=== PATIENT | female | born 1960 | race Caucasian/White ===

== ENCOUNTER 2017-09-14 04:21 | Inpatient (IN) | payer BC ==
--- NOTE | 2017-09-01 14:48 | HP ---
HISTORY AND PHYSICAL: DATE OF ADMISSION/SURGERY: 09/14/17 DATE OF OFFICE VISIT: 09/01/17 SURGEON: Dennise Marie MD * (DICTATED BY SHANICE HERNANDES) PROCEDURE: Left total hip arthroplasty. CHIEF COMPLAINT: Left hip pain. HISTORY OF PRESENT ILLNESS: Ms. Kilgore is a 57-year-old female with complaints of left hip pain secondary to end-stage osteoarthritis. She has failed conservative treatment and elected to proceed with surgery, which is scheduled for 09/14/[address] Marie. PAST MEDICAL HISTORY: Depression. PAST SURGICAL HISTORY: x3. CURRENT MEDICATION: Citalopram hydrobromide 20 mg daily. ALLERGIES: LOVASTATIN. FAMILY HISTORY: Heart disease and diabetes. SOCIAL HISTORY: She is a 57-year-old female. She lives with her . She does not smoke or use drugs. Uses alcohol rarely. REVIEW OF SYSTEMS: A complete 14-point review of systems was reviewed with the patient, was all negative and noncontributory. PHYSICAL EXAMINATION GENERAL: Well developed and well nourished, in no acute distress. VITAL SIGNS: She stands 64 inches tall, weighs 170 pounds. Blood pressure is 118/78, heart rate is 68. HEENT: Normocephalic, atraumatic. NECK: Supple. No palpable lymph nodes. PULMONARY: The lungs are clear to auscultation bilaterally. CARDIO: Regular rate and rhythm. Strong S1, S2. ABDOMEN: Soft, nontender, nondistended. NEUROLOGICAL: She is alert and oriented x3. MUSCULOSKELETAL: Left lower extremity: The skin is intact. There are no open wounds or abrasions. She walks with an antalgic-type gait favoring her left hip. She has decreased internal and external rotation of the left hip. 2+ dorsalis pedis pulses, intact sensation in her lower extremity. Muscle group strengths are intact at 5/5. ASSESSMENT AND PLAN: Ms. Kilgore is a 57-year-old female with end-stage osteoarthritis of the left hip. She has failed conservative treatment and elected to proceed with a left total hip arthroplasty, which is scheduled for with Dr. Marie. Dr. Marie discussed the risks and benefits of the surgery at today's visit and all of her questions were answered. She will follow up with Dr. Marie 2 weeks after the surgery. SHANICE HERNANDES [id number]/[facility] #: [id number] ELLIS HOSPITALSimón
[~2017-09-14 04:21] MED LIST: Buffered Lidocaine 0.9% SYRIN* 5 ML/SYR SYRINGE INTRADERM ONE
[2017-09-14] MEDS ORDERED: Famotidine IV* 10 MG/ML 2 ML (20 mg) IV ONE (06:00)
[2017-09-14] MEDS ORDERED: Gabapentin CAP(*) 300 MG PO ONE (06:00)
[2017-09-14] MEDS ORDERED: Gabapentin CAP(*) 300 MG ONE (07:01)
[2017-09-14] MEDS ORDERED: Famotidine IV* 10 MG/ML 2 ML (20 mg) ONE (07:01)
[2017-09-14] MEDS ORDERED: ceFAZolin 2 GM PREMIX (*) 2 GM/50 ML BAG IVPB ONE (07:01)
[2017-09-14] MEDS ORDERED: Bupivacaine 0.5% PF 10 ML VIAL INJ ONE ×3 (07:40→11:18)
[2017-09-14] MEDS ORDERED: Midazolam* 1 MG/ML 5 ML VIAL (5 MG) ONE (08:53)
[2017-09-14] MEDS ORDERED: fentaNYL* 50 MCG/ML 2 ML VIAL (100 MCG VIAL) ONE (08:53)
[2017-09-14] MEDS ORDERED: Lidocaine 2% PF * 5 ML VIAL ONE (08:54)
[2017-09-14] MEDS ORDERED: Bupivacaine-MPF SPINAL* 7.5 MG/ML - 2ML AMP ONE (08:54)
[2017-09-14] MEDS ORDERED: Ondansetron INJ* 2 MG/ML VIAL ONE (08:54)
[2017-09-14] MEDS ORDERED: Dexamethasone IV* 4 MG/ML 1 ML (4 MG) ONE (08:54)
[2017-09-14] MEDS ORDERED: Ketorolac INJ* 30 MG/ML 1 ML VIAL ONE (08:54)
[2017-09-14] MEDS ORDERED: Propofol* 10 MG/ML 20 ML BTL IV PUSH ONE ×2 (08:54→10:49)
[2017-09-14] MEDS ORDERED: KETAMINE HCL* 50 MG/ML 10 ML VIAL ONE (09:38)
[2017-09-14] MEDS ORDERED: Phenylephrine IV* 40 MCG/ML 10 ML SYRINGE ONE (10:25)
[2017-09-14] MEDS ORDERED: HYDROmorphone INJ* 0.5 MG/0.5 ML SYRINGE IV PRN (10:41)
[2017-09-14] MEDS ORDERED: DiMENhydriNATE IV* 50 MG/ML VIAL IV PUSH PRN (10:41)
[2017-09-14] MEDS ORDERED: oxyCODONE/Acetamin 5/325 MG* TAB PO PRN (10:41)
[2017-09-14] MEDS ORDERED: Naloxone* 0.4 MG/ML 1 ML VIAL IV PRN (10:41)
[2017-09-14] MEDS ORDERED: Gabapentin CAP(*) 100 MG PO ONE (10:42)
[2017-09-14] MEDS ORDERED: HYDROmorphone INJ* 0.5 MG/0.5 ML SYRINGE ONE (10:55)
[2017-09-14] MEDS ORDERED: Gabapentin CAP(*) 100 MG ONE (11:35)
[2017-09-14] MEDS ORDERED: Polyethylene Glycol 3350* 17 GM PACKET PO PRN (11:41)
[2017-09-14] MEDS ORDERED: diPHENhydraMINE IV* 50 MG/ML 1 ml VIAL (BENADRYL) IV PRN (11:41)
[2017-09-14] MEDS ORDERED: Magnesium Hydroxide LIQ* 30 ML UDC PO PRN (11:41)
[2017-09-14] MEDS ORDERED: Ondansetron TAB* 4 MG PO PRN (11:41)
[2017-09-14] MEDS ORDERED: Bisacodyl SUPP* 10 MG SUPP PR PRN (11:41)
[2017-09-14] MEDS ORDERED: Cyclobenzaprine TAB* 10 MG PO PRN (11:41)
[2017-09-14] MEDS ORDERED: Morphine VIAL* 4 MG/ML VIAL (1 ml vial) IV PRN (11:41)
[2017-09-14] MEDS ORDERED: Acetaminophen TAB* 325 MG PO PRN (11:41)
--- NOTE | 2017-09-14 11:56 | RAD ---
INDICATION: Total left hip replacement surgery. COMPARISON: Comparison is made with a prior x-ray study of the pelvis from September 01, 2017. TECHNIQUE: A single AP view of the left hip was obtained in the operating room during a total hip replacement surgery. FINDINGS: The acetabular prosthesis is in place and there is a femoral prostheses template in place. IMPRESSION: INTRAOPERATIVE CONTROL FILMS.
--- NOTE | 2017-09-14 12:27 | RAD ---
INDICATION: Status post total left hip replacement surgery. COMPARISON: Comparison is made with a prior x-ray study of the hip from March 10, 2017. TECHNIQUE: An AP view of the pelvis and AP and lateral films of the left hip were obtained. FINDINGS: The patient is status post total left hip replacement surgery. The bones and prostheses are in normal alignment. There is a small amount of air within the adjacent soft tissues consistent with the patient's recent surgery. IMPRESSION: STATUS POST TOTAL LEFT HIP REPLACEMENT SURGERY.
[2017-09-14] MEDS ORDERED: oxyCODONE/Acetamin 5/325 MG* TAB ONE (14:29)
[2017-09-14] MEDS: oxyCODONE/Acetamin 5/325 MG* TAB PO PRN ×2 (14:30→19:48)
[2017-09-14] MEDS ORDERED: LR @ 20 MLS/HR IV PRN (16:46)
[2017-09-14] MEDS ORDERED: LR @ 20 MLS/HR IV ONE (17:00)
[2017-09-14] MEDS ORDERED: Warfarin TAB(*) 6 MG PO ONE (17:00)
[2017-09-14] MEDS: ceFAZolin 1 GM in Dextrose (*) 1 GM/50 ML BAG IVPB SCH (17:25)
[2017-09-14] MEDS: oxyCODONE TAB* 5 MG TAB PO PRN ×2 (17:25→21:33)
[2017-09-14] MEDS: Docusate CAP* 100 MG PO SCH (19:45)
[2017-09-14] MEDS: Magnesium Hydroxide LIQ* 30 ML UDC PO SCH (19:45)
[2017-09-14] MEDS: Ondansetron INJ* 2 MG/ML VIAL IV PRN (21:34)
[2017-09-15] MEDS: oxyCODONE/Acetamin 5/325 MG* TAB PO PRN ×3 (00:43→08:35)
--- NOTE | 2017-09-15 00:57 | OP ---
DATE OF SURGERY: 09/14/17 - ROOM #346 DATE OF : 58. ATTENDING SURGEON: Dennise Marie MD. SEED SALES MANAGER: SHANICE Hendrix. Mr. Rueda did help throughout the procedure with preparation of the leg, wound retraction, manipulation of the hip and wound closure. ANESTHESIOLOGIST: Dr. Worthington. ANESTHESIA: Spinal. PRE-OP DIAGNOSIS: Severe end-stage degenerative osteoarthritis of the left hip joint. POST-OP DIAGNOSIS: Severe end-stage degenerative osteoarthritis of the left hip joint. OPERATIVE PROCEDURE: Left total hip arthroplasty. ESTIMATED BLOOD LOSS: 300 cc. COMPLICATIONS: None. SPECIMENS: Femoral head and acetabular reaming sent to pathology. HARDWARE USED: This is Yuly uncemented total hip arthroplasty hardware. For the cup, a Tritanium cluster hole shell 52D, for the bone screw a 20-mm torque 6.5 cancellous bone screw. For the insert, a Trident X3 0-degree polyethylene insert 32D. For the stem, an Accolade TMZF size 3 with a 132- degree neck and for the head, a Biolox delta ceramic V40, femoral head 32+0. BRIEF HISTORY/INDICATIONS: Ms. Kilgore is a 57-year-old female with years of increasingly severe left hip pain. She failed conservative treatment with anti - inflammatories, physical therapy, and pain medication. Due to continued pain and decreased quality of life, she elected to undergo a left total hip arthroplasty. Informed consent was obtained from the patient. She understood the risks of surgery included, but were not limited to bleeding, infection, damage to nearby structures, continued pain, need for further surgery, intraoperative fracture, nerve palsy, hardware failure or loosening, leg length discrepancy, dislocation, stroke, heart attack, blood clot, and . She wished to proceed. INTRAOPERATIVE FINDINGS: Intraoperatively, the patient was noted to have severe arthritis with complete loss of cartilage along the femoral head and acetabulum. She had significant osteophyte formation around the femoral neck and the acetabular rim. DESCRIPTION OF PROCEDURE: Ms. Kilgore was identified in the preanesthesia unit. Her left lower extremity was marked as the correct operative side. Informed consent was signed and placed in the chart. The patient was taken to the operating room and placed under spinal anesthesia. A Wagner catheter was placed. She was placed in the right lateral decubitus position on the pegboard. All bony prominences were well padded. Left lower extremity was prepped and draped in the usual sterile fashion. Preop time-out was made to correctly identify the patient's side and site. Appropriate perioperative antibiotics were given within 1 hour of incision. A 12-cm posterior hip incision was made with a 10 blade and carried down to the lateral fascial layer. Lateral fascial layer was incised in line with a skin incision. Charnley retractor was placed. The piriformis and conjoint tendons were identified on the posterolateral femur. These were elevated with electrocautery and tagged with #5 Ethibond. Next, the electrocautery was used to make a standard posterior and lateral capsular flap, and this was also tagged with #5 Ethibond. The hip was carefully dislocated. Lesser troch to the center of the femoral head measured 58 mm. Oscillating saw was used to make the appropriate femoral neck cut. The femoral head was carefully removed. The femur was retracted anteriorly. After appropriate placement of retractors, the acetabulum was well visualized. A long-handled knife was used to sharply remove any remaining labrum from the acetabular rim. The acetabulum was sequentially reamed up to a size 51. A 51 trial had good fit. Final implant chosen was a 52 Tritanium cluster hole shell 52D. A subchondral bleeding bone bed was obtained through the reamer. The final implant was impacted into the acetabulum without difficulty. There was excellent stability with appropriate anteversion and abduction angle. A single 20 mm screw was placed in the superior and posterior quadrant for extra stability. Insert chosen was a Trident X3 0-degree polyethylene insert 32D. This was impacted into the acetabulum without difficulty. Stability of the insert was checked and rechecked and noted to be stable. Next, attention was turned to preparation of the femur. A canal finder was used to enter the proximal femoral canal. Femoral canal was sequentially broached up to a size 3. Size 3 broach had good stability and appropriate anteversion. A 132 neck trial was chosen. A 32+0 head trial was chosen. Lesser troch to the center of the femoral head measured 59 mm. The hip was reduced and taken through a range of motion. The hip was stable in all positions. Soft tissue tension and leg length were deemed to be appropriate. The hip was dislocated. All trials were removed. Final implant chosen was an Accolade TMZF size 3 with a 132-degree neck. This was impacted into the femoral canal without difficulty. The stem was stable with appropriate anteversion. The final head chosen was a Biolox delta ceramic V40 femoral head 32+0. This was impacted onto the femoral neck. Lesser troch to the center of the femoral head, final measurement was 58 mm. The hip was reduced and taken through a range of motion. The hip was stable in all positions. There was good soft tissue tension and appropriate leg lengths. The hip was copiously irrigated with sterile saline. Previously tagged capsule and tendons were reapproximated to the posterolateral femur through 2 trochanteric drill holes. The lateral fascial layer was closed using interrupted #1 Vicryls. The rest of the incision was closed in a layered fashion using 0 and 2-0 Vicryls. Skin was closed using running 3-0 Monocryl with Dermabond. Sterile Adaptic, 4x4s, and paper tape were used to cover the incision. The patient's anesthesia was reversed without difficulty. She was taken to the PACU in stable condition. Intended weightbearing will be weightbearing as tolerated. Intended DVT prophylaxis will be Coumadin with a Lovenox bridge. [id number]/[facility] #: [id number] ISABELL
[2017-09-15] MEDS: ceFAZolin 1 GM in Dextrose (*) 1 GM/50 ML BAG IVPB SCH ×2 (01:10→08:34)
[2017-09-15 05:50] LABS: Hematocrit 32 % (35-47); Hemoglobin 11.2 g/dl (12.0-16.0); Mean Platelet Volume 7.9 um3 (7.4-10.4); Platelet Count 164 10^3/ul (150-450)
[2017-09-15 06:00] LABS: INR 1.16 (0.77-1.02)
[2017-09-15 06:03] LABS: EGFR Non-African American 104.7 (>60)
[2017-09-15] MEDS: oxyCODONE TAB* 5 MG TAB PO PRN ×4 (06:11→23:19)
[2017-09-15] MEDS: Magnesium Hydroxide LIQ* 30 ML UDC PO SCH ×2 (08:51→19:15)
[2017-09-15] MEDS: Docusate CAP* 100 MG PO SCH ×2 (08:51→19:15)
[2017-09-15] MEDS ORDERED: traMADol TAB* 50 MG PO PRN ×2 (09:20)
[2017-09-15] MEDS: Ondansetron INJ* 2 MG/ML VIAL IV PRN (09:22)
--- NOTE | 2017-09-15 09:28 | PN ---
Progress Note - Progress Note Date of Service: 09/15/17 SOAP: Subjective: Pt is doing well. Pain is controlled but she has nausea. She vomited during PT. Doing well otherwise. Denies CP/SOB, F/C or calf pain Objective: PE- 57 y/o WDWN F NAD, A&O x 3 LLE- inc c/d/i, full f/e knee, +DF/PF ankle, calf soft NT, +2 Dp pulse SILT distally Vital Signs Temp Pulse Resp BP Pulse Ox 97.8 F 84 18 99/63 97 09/15/17 07:29 09/15/17 07:29 09/15/17 08:35 09/15/17 07:29 09/15/17 08:00 Laboratory Results - last 24 hr 09/15/17 09/15/17 09/15/17 05:21 05:21 05:21 Hgb 11.2 L Hct 32 L Plt Count 164 MPV 7.9 INR (Anticoag Therapy) 1.16 H Sodium 135 Potassium 4.2 Chloride 105 Carbon Dioxide 28 Anion Gap 2 BUN 9 Creatinine 0.59 Est GFR ( Amer) 126.7 Est GFR (Non-Af Amer) 104.7 BUN/Creatinine Ratio 15.3 Glucose 126 H Calcium 8.2 L Assessment: POD 1 Left MJ Plan: Zofran for nausea Try to switch to tramadol and tylenol to reduce nausea, if not enough for pain cont percocet and zofran WBAT- PT/OT Cont lovenox and coumadin- 8 mg coumadin tonight Plan to DC to home tomorrow with VNS
[2017-09-15] MEDS ORDERED: Scopolamine 1.5 mg* PATCH TRANSDERM PRN (12:00)
[2017-09-15] MEDS ORDERED: Scopolamine 1.5 mg* PATCH ONE (12:05)
[2017-09-15] MEDS: Enoxaparin(*) 40 MG/0.4 ML SYR SUBCUT SCH (12:08)
[2017-09-15] MEDS: Citalopram TAB* 20 MG PO SCH (14:57)
[2017-09-15] MEDS ORDERED: Warfarin TAB(*) 4 MG PO ONE (17:00)
[2017-09-16] MEDS: oxyCODONE TAB* 5 MG TAB PO PRN ×4 (05:23→21:19)
[2017-09-16 05:49] LABS: Hematocrit 29 % (35-47); Hemoglobin 10.1 g/dl (12.0-16.0); Mean Platelet Volume 8.2 um3 (7.4-10.4); Platelet Count 143 10^3/ul (150-450)
[2017-09-16 05:53] LABS: INR 1.86 (0.77-1.02)
[2017-09-16] MEDS: Docusate CAP* 100 MG PO SCH ×2 (08:30→20:46)
[2017-09-16] MEDS: oxyCODONE/Acetamin 5/325 MG* TAB PO PRN (08:30)
[2017-09-16] MEDS: Citalopram TAB* 20 MG PO SCH (08:30)
[2017-09-16] MEDS: Magnesium Hydroxide LIQ* 30 ML UDC PO SCH ×2 (08:31→20:46)
--- NOTE | 2017-09-16 09:59 | PN ---
Progress Note - Progress Note Date of Service: 09/16/17 SOAP: Subjective: Pt is doing well. Continues to have pain, states nausea is better. Complains of dizziness today. Feeling a bit "groggy" Doing well otherwise. Denies CP/SOB, F/ C or calf pain Objective: PE- 57 y/o WDWN F NAD, A&O x 3 LLE- dressing changed, inc c/d/i, no drainage, +DF/PF ankle, calf soft NT, +2 Dp pulse, SILT distal Vital Signs Temp 98.8 F 09/16/17 07:54 Pulse 83 09/16/17 07:54 Resp 18 09/16/17 08:30 BP 96/54 09/16/17 07:54 Pulse Ox 95 09/16/17 07:54 Intake & Output 09/15/17 09/16/17 09/16/17 18:59 06:59 18:59 Intake Total 1782 400 340 Output Total 1225 950 250 Balance 557 -550 90 Intake: IV Fluids 889 LR 889 IVPB 53 cefazolin 53 Oral 840 400 340 Output: Urine 1225 950 250 Other: Estimated Void Large # Voids 1 Assessment: POD 2 Left MJ Plan: Zofran for nausea, scopolomine patch also Tramadol for baseline pain control. Oxy 10mg for breakthrough pain WBAT- PT/OT 2mg coumadin INR 2.10 Plan to DC to home tomorrow with VNS
[2017-09-16] MEDS ORDERED: traMADol TAB* 50 MG PO PRN ×2 (10:00)
[2017-09-16] MEDS: Enoxaparin(*) 40 MG/0.4 ML SYR SUBCUT SCH (11:46)
[2017-09-16] MEDS ORDERED: Warfarin TAB(*) 6 MG PO NR (17:00)
[2017-09-16] MEDS ORDERED: Warfarin TAB(*) 2 MG PO NR (17:00)
[2017-09-17] MEDS: oxyCODONE TAB* 5 MG TAB PO PRN ×2 (03:08→08:09)
[2017-09-17 05:50] LABS: Hematocrit 29 % (35-47); Hemoglobin 10.1 g/dl (12.0-16.0); Mean Platelet Volume 8.3 um3 (7.4-10.4); Platelet Count 146 10^3/ul (150-450)
[2017-09-17 05:55] LABS: INR 2.42 (0.77-1.02)
[2017-09-17] MEDS: Magnesium Hydroxide LIQ* 30 ML UDC PO SCH (08:09)
[2017-09-17] MEDS: Citalopram TAB* 20 MG PO SCH (08:10)
[2017-09-17] MEDS: Docusate CAP* 100 MG PO SCH (08:10)
[2017-09-17 08:12] VITALS: BP 108/57
--- NOTE | 2017-09-17 09:09 | PN ---
Progress Note - Progress Note Date of Service: 09/17/17 SOAP: Subjective: Pt is doing well. States that pain is vastly improved, states nausea and dizziness is gone. Denies CP/SOB, F/C or calf pain. Is ready to go go home today. Objective: PE- 57 y/o WDWN F NAD, A&O x 3 LLE- dressing c/d/i, no drainage, +DF/PF ankle, calf soft NT, +2 Dp pulse, SILT distal Vital Signs Temp 98.4 F 09/17/17 07:30 Pulse 68 09/17/17 07:30 Resp 18 09/17/17 08:09 BP 108/57 09/17/17 07:30 Pulse Ox 95 09/17/17 08:00 Intake & Output 09/16/17 09/17/17 09/17/17 18:59 06:59 18:59 Intake Total 340 600 240 Output Total 0 800 1000 Balance -0170 -200 -760 Intake: Oral 340 600 240 Output: Urine 2049 800 1000 Assessment: POD 3 Left MJ Plan: D/C home today Zofran for nausea Pt will be sent home on oxycodone 5 mg to take every 4 - 6 hours prn WBAT- PT/OT Hold warfarin tonight, recheck tomorrow
--- NOTE | 2017-09-17 11:47 | DS ---
DISCHARGE SUMMARY: DATE OF ADMISSION: 09/14/17 DATE OF DISCHARGE: 09/17/17 PROVIDER: Dennise Marie MD.* (DICTATED BY SHANICE RAVI) ADMITTING DIAGNOSIS: Left total hip arthroplasty. CONSULTATIONS: Physical therapy and occupational therapy. HISTORY OF PRESENT ILLNESS: Summer is a 57-year-old female with complaints of left hip pain secondary to end-stage osteoarthritis. She has failed conservative treatment and elected to proceed with a left total hip arthroplasty that was performed on 09/14/[address] Dennise Marie. HOSPITAL COURSE: The patient was admitted to [facility] on 09/14/17 and underwent a left total hip arthroplasty with no complications. The patient recovered briefly in the postanesthesia care unit and was then transferred to short stay surgical unit in stable condition. On postop day #1 the H and H was 11.2 and 32 and the INR was 1.6 after 6 mg of Coumadin the night before. The patient experienced some nausea and vomiting on postop day 1 and Zofran was given to the patient and then an attempt to switch to tramadol to reduce nausea was performed. We also gave the patient a scopolamine patch in order to help with the nausea. Dressing was clean, dry, and intact and the left lower extremity was neurovascularly intact. She demonstrated dorsiflexion and plantar flexion with good strength. The patient was able to get out of bed for physical therapy. Pain was controlled with Percocet 5/325. On postop day #2 the urinary catheter was discontinued and the patient was able to void without difficulty. Incision was found to be benign with minimal drainage, no erythema or warmth. The patient's H and H was 10.1 and 29 with an INR of 1.86 after 8 mg of Coumadin the night before. The patient had some dizziness, but felt that her nausea and vomiting was well improved. She continued to use oxycodone for pain relief, although tramadol was prescribed, she would rather use oxycodone. On postop day #3, the patient's H and H was 10.1 and 29 with an INR of 2.42 after 6 mg of Coumadin the night before. The patient states that the dizziness subsided after a a bolus that was given of lactated Ringer's. The patient's nausea and vomiting has subsided also. Pain has been well controlled with oxycodone 5 mg. The patient's pain is controlled enough to be stable for discharge. Throughout the hospital course, the vital signs were stable and the patient was afebrile. DISCHARGE CONDITION: Good. DISCHARGE MEDICATIONS: New medications: 1. Oxycodone 5 mg. 2. Zofran 4 mg. 3. Warfarin 2 mg. Home medications: 1. Citalopram hydrobromide 20 mg. DISCHARGE INSTRUCTIONS: 1. Weightbearing as tolerated. 2. Wound care: Okay to shower on postop day #3. No bathing, swimming, or submerging the wound. Use gentle, soap and pat dry. Cover with gauze, Francois wrap or tape. Call orthopedic office for increased drainage, redness, increased pain or fever. Go to the ER with shortness of breath or chest pain. 3. Diet: Regular diet. Increase fluids and fiber to prevent constipation. Continue to use stool softeners. Call office if no bowel motion within 48 hours. 4. Hip precautions. Continue posterior hip precautions and do not cross legs or bend greater than 90 degrees or squat. 5. Continue physical therapy and occupational therapy exercises as shown. 6. Visiting home nurses to do wound checks. 7. Visiting home nurses to draw blood for INR on Monday and . 8. Coumadin dosing, please note that you have been given 2 mg tablets. Please lucita dosing instructions on your calender as they are . Hold Coumadin tonight, recheck tomorrow. 9. Pain control with oxycodone 5 mg 1 to 2 tablets by mouth every 4 to 6 hours as needed for pain, maximum of 10 tabs per day. 10. Antibiotics required prior to any dental work. 11. Follow up with Dr. Dennise Marie in 10 to 14 days. Call for an appointment. SHANICE RAVI [id number]/[facility] #: [id number] ISABELL
[2017-09-18] MEDS ORDERED: Scopolamine PATCH Remove* 1 NOTE MISC PATCH OFF SCH (12:00)
== END 2017-09-17 10:30 | disposition home health service (06) | DRG 301 ==
LOC: AA 06:47 → SSU 13:45
PROVIDERS: ADMIT Orthopaedic Surgery Adult Reconstructive Orthopaedic Surgery; ATTEND Orthopaedic Surgery Adult Reconstructive Orthopaedic Surgery
PROC: 0SRB04A Replacement of Left Hip Joint with Ceramic on Polyethylene Synthetic Substitute, Uncemented, Open Approach (ICD-10-PCS; principal; 2017-09-14 09:00)
DX: M16.12 Unilateral primary osteoarthritis, left hip (principal); F32.9 Major depressive disorder, single episode, unspecified; E78.5 Hyperlipidemia, unspecified; F41.9 Anxiety disorder, unspecified; E66.9 Obesity, unspecified; M25.752 Osteophyte, left hip; R11.2 Nausea with vomiting, unspecified; R42 Dizziness and giddiness; Z88.8 Allergy status to other drugs, medicaments and biological substances; Z83.3 Family history of diabetes mellitus; Z82.49 Family history of ischemic heart disease and other diseases of the circulatory system; Z79.01 Long term (current) use of anticoagulants; Z72.89 Other problems related to lifestyle; Z68.31 Body mass index [BMI] 31.0-31.9, adult; Z82.61 Family history of arthritis
CPT/HCPCS: 36415; 80048; 85014; 85018; 85049; 85610; 88304; 88311; A9270-GY; C1713; C1776; G8987-GO-CJ; G8988-GO-CI; G8989-GO-CI; J0690; J1100; J1170; J1650; J1885; J2250; J2405; J2704; J3010

== ENCOUNTER → 2018-09-18 05:38 | Day surgery (SDC) | payer BC ==
--- NOTE | 2018-09-14 23:49 | HP ---
AMENDED REPORT NOW INCLUDES DESIGNATED COSIGNER HISTORY AND PHYSICAL: DATE OF SURGERY: 09/18/18 DATE OF OFFICE VISIT: 09/14/18 SURGEON: Dr. Dennise Marie.* (DICTATED BY SHANICE MARAVILLA) PROCEDURE: Right knee arthroscopy with partial meniscectomy, possible chondroplasty, synovectomy, and plica excision. CHIEF COMPLAINT: Right knee pain. HISTORY OF PRESENT ILLNESS: Ms. Kilgore is a 58-year-old female who has had significant right knee pain. She has failed conservative treatment with steroid injections and physical therapy with minimal improvement of her pain. She has had an MRI showing a medial meniscal tear and the pain is causing her enough discomfort that she would like to proceed with an arthroscopy for partial meniscectomy. PAST MEDICAL HISTORY: Positive for osteoarthritis and depression. PAST SURGICAL HISTORY: x3, left total hip arthroplasty in 2018. MEDICATIONS: 1. Citalopram hydrobromide 20 mg p.o. daily. 2. Phentermine HCL 30 mg p.o. daily. 3. Amoxicillin 500 mg, take 4 tablets 1 hour prior to dental procedures. ALLERGIES: Lipostatin which results in hives. FAMILY HISTORY: Positive for diabetes, hypertension, coronary artery disease, and rheumatoid arthritis. 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 She lives at home with her partner. She denies any tobacco or recreational drug use. She drinks 10 alcoholic beverages per week. She normally is an independent ambulator. She is right-hand dominant. REVIEW OF SYSTEMS: Negative for general, cephalic, CV, respiratory, GI, , other musculoskeletal, integumentary, endocrine, neurologic, hematologic symptoms. Infectious Disease: Negative for MRSA, hep C, HIV. No known history of DVTs. PHYSICAL EXAMINATION GENERAL: Well-developed, well-nourished 58-year-old female, in no acute distress. VITAL SIGNS: Height 64 inches, weight 183 pounds, pulse 100, BP 108/70, BMI 31.4. HEENT: Normocephalic, atraumatic. PERRLA. Extraocular movement intact. NECK: Supple. No palpable lymph nodes. Throat is clear. PULMONARY: Lungs are clear to auscultation bilaterally. No wheezes, rales, or rhonchi. CARDIO: Regular rate and rhythm. S1 and S2 normal. No murmurs, rubs, or gallops. No edema. ABDOMEN: Positive bowel sounds. Soft, nontender. NEUROLOGIC: A and O x3. Cranial nerves II through XII intact. Sensation is intact to light touch. MUSCULOSKELETAL: Lower extremity: The patient's skin is intact. No abrasions or open wounds. No palpable lymph nodes or masses. Range of motion is 5 to 125 degrees of flexion today at the knee. Positive for a mild effusion of the knee. Some tenderness to palpation along the medial joint line. Tenderness along the IT band and hamstring tendons posterolaterally; this is improved today compared to last visit. She has positive Deni's, and distally neurovascularly intact. DIAGNOSTIC STUDIES: MRI from 08/01/18 shows significant arthritis in the medial and patellofemoral compartments as well as a tear in the medial meniscus posterior horn and body. IMPRESSION: Right knee medial meniscal tear as well as osteoarthritis. PLAN: The patient is scheduled to undergo a right knee arthroscopy with partial meniscectomy, possible chondroplasty, synovectomy, and plica excision with Dr. Marie on 09/18/18. Dr. Marie went over the procedure as well as the risks and benefits with the patient and she elected to proceed. She will return to the office in 10 to 14 days postop for followup and suture removal. Prescription for tramadol will be e-scribed to the patient's pharmacy for postoperative pain management. SHANICE KING [id number]/[facility] #: [id number] ISABELL
[~2018-09-18 05:38] MED LIST changes: +Acetaminophen TAB* 325 MG PO PRN; -Buffered Lidocaine 0.9% SYRIN* 5 ML/SYR SYRINGE INTRADERM ONE; +Buffered Lidocaine 1% SYRIN* 1 ML/SYRINGE INTRADERM ONE; +Bupivacaine 0.5%* 50 ML VIAL ONE; +Dexamethasone IV* 4 MG/ML 1 ML (4 MG) ONE; +DiMENhydriNATE IV* 50 MG/ML VIAL IV PUSH PRN; +EPINEPHRINE 1 MG/ML 1 ML VIAL ONE; +Ketorolac INJ* 30 MG/ML 1 ML VIAL ONE; +Lactated Ringers 1000 ML Bag* 1,000 ML IV SCH; +Lidocaine 2% PF * 5 ML VIAL ONE; +Metoclopramide IV* 5 MG/ML 2 ML VIAL ONE; +Midazolam* 1 MG/ML 2 ML VIAL (2 MG) ONE; +Naloxone* 0.4 MG/ML 1 ML VIAL IV PRN; +Ondansetron INJ* 2 MG/ML VIAL ONE; +Propofol* 10 MG/ML 20 ML BTL ONE; +ROPIVACAINE 5 MG/ML 30 ML BTL (0.5%) ONE; +Succinylcholine* 20 MG/ML 10 ML VIAL ONE; +ceFAZolin 2 GM in NS PREMIX(*) 2 GM/100 ML BAG IVPB ONE; +fentaNYL* 50 MCG/ML 2 ML VIAL (100 MCG VIAL) IV PRN; +fentaNYL* 50 MCG/ML 2 ML VIAL (100 MCG VIAL) ONE; +methylPREDNISolone ACETATE 80* 80 MG/ML 1 ML VIAL ONE; +oxyCODONE TAB* 5 MG TAB PO PRN
[2018-09-18 09:34] VITALS: BP 116/79
--- NOTE | 2018-09-18 21:34 | OP ---
DATE OF OPERATION: 09/18/18 [facility] DATE OF : 58 ATTENDING SURGEON: Dennise Marie MD PATIENT REGISTRAR: SHANICE Purdy. Ms. Smith did help throughout the procedure with preparation of the leg, wound retraction, manipulation of the knee, and wound closure. ANESTHESIOLOGIST: Dr. Rojo. ANESTHESIA: General. PRE-OP DIAGNOSES: Right knee medial meniscal tear, mild to moderate osteoarthritis. POST-OP DIAGNOSES: Right knee medial meniscal tear, anterior synovitis, moderate to severe arthritis. OPERATIVE PROCEDURE: Right knee arthroscopy with partial medial meniscectomy, anterior synovectomy, patellofemoral chondroplasty. BRIEF HISTORY/INDICATION: Ms. Kilgore is a 58-year-old female with two months of acute onset right knee pain and mechanical symptoms. She failed conservative treatment and MRI confirmed a medial meniscal tear. She had some mild arthritic changes on plain films. Due to continued pain and failure of conservative treatment, the patient elected to undergo a right knee arthroscopy. Informed consent was obtained from the patient. She understood the risks of surgery included, but were not limited to, bleeding, infection, damage to nearby structures, continued pain, need for further surgery, re-tear of the meniscus, progression of arthritis, stroke, heart attack, blood clot, and . The patient wished to proceed. INTRAOPERATIVE FINDINGS: Intraoperatively, the patient had grade 3 and 4 Outerbridge cartilage changes in the medial and patellofemoral compartment. She had a linear tear along the posterior horn of the medial meniscus. She had a significant amount of anterior synovitis. She had some cartilage flapping and fissuring along the patellofemoral compartment. ESTIMATED BLOOD LOSS: Less than 25 cc. SPECIMENS: None. COMPLICATIONS: None. DESCRIPTION OF PROCEDURE: Ms. Kilgore was identified in the preanesthesia unit. Her right lower extremity was marked as the correct operative side. Informed consent was signed and placed in the chart. The patient was taken to the operating room and placed under anesthesia. Right lower extremity was prepped and draped in the usual sterile fashion. Preop time-out was made to correctly identify the patient, side and site. Appropriate perioperative antibiotics were given within 1 hour of incision. A 0.5 cm standard anterolateral portal incision was made with a #10 blade and carried down through the capsule. Trocar was introduced. As soon as the light and water sources were turned on, there was immediate visualization of the suprapatellar pouch. A tour of the knee joint was performed. Suprapatellar pouch showed no obvious abnormality. Patellofemoral compartment showed some fissuring and flapping of the cartilage along the medial patellar facet and the trochlear groove of the femur. These were grade 3 and 4 Outerbridge cartilage changes. Medial gutters showed no loose body or plica. Anterior joint line showed significant amount of synovitis. Medial compartment showed grade 3 and 4 Outerbridge cartilage changes along the medial femoral condyle. There was an anteriorly displaced posterior medial meniscal tear. ACL and PCL appeared to be intact. The knee was placed in a [id number] position. There was no obvious lateral meniscal tear. No significant lateral degenerative changes. Lateral gutter showed no loose body or plica. Under direct visualization, a medial portal incision was made with a #15 blade. A probe was introduced and a second tour of the knee joint was performed. No additional findings were noted. Shaver and radiofrequency ablation wand were introduced. These were used to perform an anterior synovectomy. Inflamed tissue was conservatively excised until there was no further impingement with range of motion. A straight biter and shaver were used to perform partial medial meniscectomy. This was a longitudinal tear in the posterior one-third of the medial meniscus. This was in the white-red zone. Meniscal tear was excised. Further probing of the meniscal edge showed no additional tears. A smooth border was obtained. The knee was extended and the radiofrequency ablation wand was used to smooth any cartilage flapping in the patello-femoral compartment. This was done in a conservative fashion. The chondroplasty was mainly along the cartilage flap of the medial patellar facet. The knee joint was copiously irrigated with sterile saline. All instruments were carefully removed. Incisions were closed using 3-0 nylon suture. Intraarticular injection of 80 mg Depo-Medrol and 6 cc 0.25% Marcaine was placed in the knee joint. The patient's incisions were covered with Xeroform, 4x4s, and Webril. Francois wrap and cold pack were placed over this. The patient's anesthesia was reversed without difficulty. She was taken to the PACU in stable condition. Intended weightbearing will be weightbearing as tolerated. She will have aspirin for DVT prophylaxis. I will see her in clinic in 2 weeks' time for suture removal. [id number]/CPS #: [id number] MTDD
== END | disposition home or self-care (01) ==
LOC: OR 05:38
PROVIDERS: ATTEND Orthopaedic Surgery Adult Reconstructive Orthopaedic Surgery
DX: S83.241A Other tear of medial meniscus, current injury, right knee, initial encounter (principal); M65.861 Other synovitis and tenosynovitis, right lower leg; M17.11 Unilateral primary osteoarthritis, right knee; X58.XXXA Exposure to other specified factors, initial encounter; Y92.9 Unspecified place or not applicable; F32.9 Major depressive disorder, single episode, unspecified; M19.90 Unspecified osteoarthritis, unspecified site
CPT/HCPCS: J0330; J0690; J1040; J1100; J1885; J2250; J2405; J2704; J2765; J2795; J3010; J3490